=== PATIENT | female | born 1980 | race Caucasian/White ===

== ENCOUNTER 2024-10-06 13:55 | Observation (INO) | payer BC ==
[2024-10-06] MEDS ORDERED: Morphine 4 MG/ML VIAL ONE ×2 (14:27→16:33)
[2024-10-06 18:52] VITALS: BMI 34.7
[2024-10-06] MEDS ORDERED: Ondansetron PF 4 MG/2 ML Vial IVP PRN ×2 (19:45→20:00)
[2024-10-06] MEDS ORDERED: Morphine 4 MG/ML VIAL SLOW IVP PRN (19:59)
[2024-10-06] MEDS: Piperacillin/Tazobactam 3.375 GM in Sodium Chloride 0.9% 100 ML IVPB SCH (20:22)
[2024-10-06] MEDS: Morphine 4 MG/ML VIAL SLOW IVP PRN (20:28)
[2024-10-07] MEDS: Piperacillin/Tazobactam 3.375 GM in Sodium Chloride 0.9% 100 ML IVPB SCH (00:58)
[2024-10-07] MEDS: Ketorolac Tromethamine 30 MG (1 mL) VIAL IVP SCH (07:53)
[2024-10-07] MEDS: Acetaminophen 500 MG TAB PO SCH (07:53)
[2024-10-07] MEDS ORDERED: Dexamethasone 4 mg/ml Vial ONE (07:55)
[2024-10-07] MEDS ORDERED: Lidocaine 1% PF 5 ML VIAL ONE (07:55)
[2024-10-07] MEDS ORDERED: Fentanyl 250 MCG/5 ML VIAL ONE (07:55)
[2024-10-07] MEDS ORDERED: PROPOFOL 20 ML ONE (07:55)
[2024-10-07] MEDS ORDERED: Midazolam HCl 2 mg/2 ml Vial ONE (07:55)
[2024-10-07] MEDS ORDERED: Rocuronium Bromide 10 MG/ML (10ML VIAL) ONE (07:55)
[2024-10-07] MEDS ORDERED: Ondansetron PF 4 MG/2 ML Vial ONE ×2 (07:55→09:58)
[2024-10-07] MEDS ORDERED: Glucagon 1 MG/ML KIT ONE (07:58)
[2024-10-07] MEDS ORDERED: Iopamidol 30 ML ONE (07:58)
[2024-10-07] MEDS ORDERED: Bupivacaine HCl 0.5%/Epinephrine 1:200,000/PF 30 ml Vial ONE (07:58)
[2024-10-07] MEDS: Sodium Chloride 0.9% 1,000 ML IV SCH (08:04)
[2024-10-07] MEDS ORDERED: Piperacillin/Tazobactam 3.375 GM VIAL ONE (08:37)
[2024-10-07] MEDS ORDERED: Bupivacaine 0.25% HCL 30 ML VIAL ONE (08:54)
[2024-10-07] MEDS ORDERED: Sevoflurane 250 ML INH ANEST BOTTLE ONE (09:02)
[2024-10-07] MEDS ORDERED: SUGAMMADEX SODIUM 200 MG/2 ML VIAL ONE (09:27)
[2024-10-07] MEDS: traMADol HCl 50 MG TAB PO PRN (10:53)
[2024-10-07] MEDS: Escitalopram Oxalate 20 mg Tablet PO SCH (10:54)
[2024-10-07] MEDS: Ibuprofen 200 MG TAB PO PRN (10:54)
[2024-10-07] MEDS ORDERED: Acetaminophen 500 MG TAB PO SCH (13:00)
[2024-10-07 13:28] VITALS: BP 127/78; TEMP 98.8
[2024-10-08] MEDS ORDERED: Escitalopram Oxalate 20 mg Tablet PO SCH (09:00)
== END 2024-10-07 13:20 | disposition home or self-care (01) ==
LOC: CSHERS 13:55 → CSHTELE 17:10
PROVIDERS: ADMIT Student in an Organized Health Care Education/Training Program; ATTEND Student in an Organized Health Care Education/Training Program
PROC: 0FT44ZZ Resection of Gallbladder, Percutaneous Endoscopic Approach (ICD-10-PCS; principal; 2024-10-07)
DX: K80.12 Calculus of gallbladder with acute and chronic cholecystitis without obstruction (principal); F32.A Depression, unspecified; F41.9 Anxiety disorder, unspecified; F17.210 Nicotine dependence, cigarettes, uncomplicated; Z88.2 Allergy status to sulfonamides; Z79.899 Other long term (current) drug therapy
CPT/HCPCS: 76705; 88304; 96374; 96375; 96376; C1889; G0378; J0665; J1100; J1611; J1885; J2250; J2272; J2405; J2543; J2704; J3010; Q9967